=== PATIENT | female | born 1945 | race Caucasian/White ===

== ENCOUNTER 2018-02-27 00:24 | Outpatient (CLI) | payer MEDICARE, BC | END 2018-02-27 23:59 | disposition home or self-care (01) | LOC: DIABETIC 00:24 | PROVIDERS: ATTEND Specialist | DX: E11.65 Type 2 diabetes mellitus with hyperglycemia (principal); Z79.899 Other long term (current) drug therapy; Z88.8 Allergy status to other drugs, medicaments and biological substances | CPT/HCPCS: G0108 ==

== ENCOUNTER 2018-06-03 00:55 | Outpatient (CLI) | payer MEDICARE, BC | END 2018-06-03 23:59 | disposition home or self-care (01) | LOC: DIABETIC 00:55 | PROVIDERS: ATTEND Specialist | DX: E11.65 Type 2 diabetes mellitus with hyperglycemia (principal); Z79.84 Long term (current) use of oral hypoglycemic drugs | CPT/HCPCS: G0108 ==

== ENCOUNTER 2018-09-02 00:42 | Outpatient (CLI) | payer MEDICARE, BC | END 2018-09-02 23:59 | disposition home or self-care (01) | LOC: DIABETIC 00:42 | PROVIDERS: ATTEND Specialist | DX: E11.65 Type 2 diabetes mellitus with hyperglycemia (principal); Z79.84 Long term (current) use of oral hypoglycemic drugs | CPT/HCPCS: G0108 ==

== ENCOUNTER 2019-03-10 02:42 | Outpatient (CLI) | payer MEDICARE, BC | END 2019-03-10 23:59 | disposition home or self-care (01) | LOC: DIABETIC 02:42 | PROVIDERS: ATTEND Specialist | DX: E11.69 Type 2 diabetes mellitus with other specified complication (principal) | CPT/HCPCS: G0108 ==

== ENCOUNTER 2019-09-16 02:00 | Outpatient (CLI) | payer MEDICARE, BC | END 2019-09-16 23:59 | disposition home or self-care (01) | LOC: DIABETIC 02:00 | PROVIDERS: ATTEND Specialist | DX: E11.65 Type 2 diabetes mellitus with hyperglycemia (principal) | CPT/HCPCS: G0108 ==